=== PATIENT | male | born 1985 ===

== ENCOUNTER 2024-04-11 06:35 | Day surgery (SDC) | payer OTHER ==
[2024-04-06 14:00] VITALS: BP 129/84
[~2024-04-11] VITALS: Ht 182.9 cm; Wt 104.3 kg
[2024-04-11] MEDS ORDERED: CEFTRIAXONE SODIUM 2,000 MG VIAL IV SCH (11:15)
[2024-04-11] MEDS ORDERED: DIBUCAINE 30 GM TUBE RECTAL ONE (11:15)
[2024-04-11] MEDS ORDERED: POVIDONE-IODINE 118 ML BOTT TOP ONE (11:15)
[2024-04-11] MEDS ORDERED: LIDOCAINE HCL 1%/EPINEPHRINE 20ML VIAL IJ ONE (11:15)
[2024-04-11] MEDS ORDERED: HEMOSTATIC MATRIX 1 KIT KIT TOP ONE (11:15)
[2024-04-11] MEDS ORDERED: BUPIVACAINE HCL 30 ML VIAL IJ ONE (11:15)
[2024-04-11] MEDS ORDERED: METRONIDAZOLE/SODIUM CHLORIDE 500 MG/100 ML PIGGYBACK IV SCH (11:15)
== END 2024-04-11 17:05 | disposition home or self-care (01) ==
LOC: CIR.AMB 06:35
PROVIDERS: ATTEND Colon & Rectal Surgery
DX: K60.1 Chronic anal fissure (principal); K62.4 Stenosis of anus and rectum